=== PATIENT | female | born 1960 | race Caucasian/White ===

== ENCOUNTER → 2022-02-01 | Outpatient (CLI) | payer OTHER ==
[2022-02-08 15:12] LABS: HPV 16 Negative (Negative); HPV 18 Negative (Negative); HPV OTHER HR TYPES Negative (Negative)
== END | disposition home or self-care (01) ==
LOC: LAB 11:45 → LAB SHORT 11:45
PROVIDERS: Nurse Practitioner Family
DX: Z12.4 Encounter for screening for malignant neoplasm of cervix (principal)
CPT/HCPCS: 87624; G0123

== ENCOUNTER → 2023-10-29 | Outpatient (CLI) | payer OTHER ==
[2023-10-29 15:47] LABS: BASOPHILS ABSOLUTE AUTO 0.07 K/mm3 (0.00-0.23); BASOPHILS PERCENT AUTO 1 % (0-2); EOSINOPHILS ABSOLUTE AUTO 0.13 K/mm3 (0.00-0.68); EOSINOPHILS PERCENT AUTO 2 % (0-6); Hemoglobin 10.6 g/dL (11.5-16.0); IMMATURE GRAN ABSOLUTE AUTO 0.02 K/mm3 (0.00-0.10); IMMATURE GRAN PERCENT AUTO 0 % (0-1); LYMPHOCYTES ABSOLUTE AUTO 1.24 K/mm3 (0.84-5.20); LYMPHOCYTES PERCENT AUTO 16 % (21-46); MONOCYTES ABSOLUTE AUTO 0.78 K/mm3 (0.16-1.47); MONOCYTES PERCENT AUTO 10 % (4-13); Mean Corpuscular HGB 31.4 pg (26.0-34.0); Mean Corpuscular HGB Conc 33.1 g/dL (31.5-36.5); Mean Corpuscular Volume 95 fL (80-100); Mean Platelet Volume 8.7 fL (9.1-12.4); NEUTROPHILS ABSOLUTE AUTO 5.37 K/mm3 (1.96-9.15); NEUTROPHILS PERCENT AUTO 71 % (41-73); Platelet Count 347 K/mm3 (150-400); RDW Coefficient Variation 14.5 % (11.7-14.2); RDW Standard Deviation 50.2 fL (35.1-46.3); Red Blood Cell Count 3.38 M/mm3 (3.80-5.20); White Blood Cell Count 7.61 K/mm3 (4.00-11.30)
[2023-10-29 16:07] LABS: Albumin, Blood 3.4 g/dL (3.4-5.0); Bilirubin, Total 0.3 mg/dL (0.1-1.0); Bun/Creatinine Ratio 13.6 (12.0-20.0); Calcium, Blood 8.4 mg/dL (8.5-10.1); Creatinine, Blood 0.81 mg/dL (0.40-1.00); Globulin, Blood 3.3 g/dL (2.2-4.0); Potassium, Blood 3.6 mmol/L (3.5-5.5); Thyroid Stimulating Hormone 2.272 uIU/mL (0.360-4.800); Total Protein, Blood 6.7 g/dL (6.4-8.2)
[2023-10-30 01:05] LABS: Bacterial Vaginosis PCR Negative (NEGATIVE); Candida Group, PCR NOT DETECTED (NOT DETECT)
[2023-10-30 01:08] LABS: Candida glabrata-krusei, PCR DETECTED (NOT DETECT)
[2023-10-31 20:00] LABS: ANTI-NUCLEAR AB ANA,IGG ELISA Detected (None Detected)
[2023-11-02 12:24] LABS: ANA PATTERN Centromere; ANA TITER >1:2560; ANTINUCLEAR AB (ANA),HEP-2,IGG Detected (<1:80)
[2023-11-02 21:22] LABS: DOUBLE-STRANDED DNA IGG ELISA 1 IU (0-24)
[2023-11-04 00:24] LABS: SMITH/RNP (ENA) AB, IGG 3 Units (0-19)
[2023-11-04 18:55] LABS: JO-1 HISTIDYL-TRNA SYNTHET,IGG 0 AU/mL (0-40); SCLERODERMA (SCL-70) AB,IGG 1 AU/mL (0-40); SMITH (ENA) ANTIBODY, IGG 2 AU/mL (0-40); SSA-52 (RO52) (ENA) AB, IGG 2 AU/mL (0-40); SSA-60 (RO60) (ENA) AB, IGG 0 AU/mL (0-40); SSB (LA) (ENA) ANTIBODY, IGG 0 AU/mL (0-40)
== END | disposition home or self-care (01) ==
LOC: LAB SHORT 15:42
PROVIDERS: Physician Assistant
DX: R10.2 Pelvic and perineal pain (principal); R53.83 Other fatigue
CPT/HCPCS: 80053; 84443; 84550; 85025; 85651; 86038; 86039; 86140; 86225; 86235; 87481; 87661; 87801